=== PATIENT | male | born 1950 | race Two or more races ===

== ENCOUNTER 2019-01-16 19:25 | Emergency (ER) | payer MEDICARE, OTHER ==
[~2019-01-16] VITALS: Ht 152.4 cm; Wt 76.4 kg
[2019-01-16 22:01] LABS: BASOPHILS % (AUTO) 0.4 % (0.0-2.0); EOSINOPHILS % (AUTO) 0 % (1.0-6.0); HEMATOCRIT 43.1 % (41-53); HEMOGLOBIN 13.8 g/dL (13.5-17.5); LYMPHOCYTES # (AUTO) 0.4 K/uL (1.0-4.8); LYMPHOCYTES % (AUTO) 4.1 % (22.0-44.0); MEAN CORPUSCULAR HEMOGLOBIN 29.1 pg (26.0-34.0); MEAN CORPUSCULAR VOLUME 91 fL (80-100); MONOCYTES # (AUTO) 0.5 K/uL (0.1-1.0); MONOCYTES % (AUTO) 5.3 % (2.0-9.0); NEUTROPHILS # (AUTO) 8.1 K/uL (1.8-7.7); PLATELET COUNT (AUTO) 206 K/uL (150-450); RED BLOOD CELL COUNT(AUTO) 4.75 MIL/uL (4.50-5.90)
[2019-01-16 22:02] LABS: NEUTROPHILS % (AUTO) 90.2 % (40.0-70.0)
[2019-01-16 22:07] LABS: APPEARANCE,URINE CLOUDY (CLEAR); BILIRUBIN,URINE NEGATIVE (NEGATIVE); GLUCOSE, URINE (UA) NEGATIVE (NEGATIVE); KETONES,URINE NEGATIVE (NEGATIVE); LEUKOCYTE ESTERASE ,URINE SMALL (NEGATIVE); NITRATE,URINE POSITIVE (NEGATIVE); OCCULT BLOOD,URINE LARGE (NEGATIVE); PROTEIN,URINE TRACE (NEGATIVE); UROBILINOGEN,URINE 0.2 mg/dL (<=1.0)
[2019-01-16 22:18] LABS: RBC,URINE >100 /HPF (0-2)
[2019-01-16 22:19] LABS: BACTERIA,URINE Moderate /HPF (None Seen)
[2019-01-16 22:20] LABS: SQUAMOUS EPITHELIAL CELL,UR Few /LPF (None Seen)
[2019-01-16 22:22] LABS: CALCIUM, TOTAL 8.9 mg/dL (8.8-10.5); CREATININE 1.55 mg/dL (0.60-1.30); POTASSIUM 3.3 mmol/L (3.5-5.1)
[2019-01-16 22:26] LABS: ALBUMIN 4.3 g/dL (3.4-5.0); BILIRUBIN,TOTAL 0.6 mg/dL (0.1-1.0); TOTAL PROTEIN, SERUM 7.5 g/dL (6.4-8.2)
[2019-01-16] MEDS: CefTRIAXone 1 GM/DEXTROSE 50 ML IV ONE (22:38)
[2019-01-16] MEDS: POTASSIUM CHLORIDE 10% 40 MEQ/30 ML LIQUID UDCUP PO ONE (23:44)
[2019-01-16] MEDS: AmLODIPine BESYLATE 5 MG TABLET PO ONE (23:44)
[2019-01-17 00:13] VITALS: BP 152/94
== END 2019-01-17 00:20 | disposition home or self-care (01) ==
LOC: EMS 19:27
DX: N39.0 Urinary tract infection, site not specified (principal); I12.9 Hypertensive chronic kidney disease with stage 1 through stage 4 chronic kidney disease, or unspecified chronic kidney disease; N18.9 Chronic kidney disease, unspecified; E87.6 Hypokalemia; R73.9 Hyperglycemia, unspecified
CPT/HCPCS: 36415; 80053; 81001; 83690; 84484; 85025; 87077; 87086; 87186; 93005; 96365; 99285; J0696

== ENCOUNTER 2019-01-24 11:26 | Emergency (ER) | payer MEDICARE, OTHER ==
[~2019-01-24] VITALS: Ht 165.1 cm; Wt 75.9 kg
[2019-01-24 14:27] LABS: APPEARANCE,URINE TURBID (CLEAR); GLUCOSE, URINE (UA) NEGATIVE (NEGATIVE); KETONES,URINE 15 mg/dL (NEGATIVE); LEUKOCYTE ESTERASE ,URINE MODERATE (NEGATIVE); NITRATE,URINE POSITIVE (NEGATIVE); OCCULT BLOOD,URINE LARGE (NEGATIVE); PH,URINE 5.5 (5.0-8.0); PROTEIN,URINE SEE CONFIRM (NEGATIVE); UROBILINOGEN,URINE 0.2 mg/dL (<=1.0)
[2019-01-24 14:38] LABS: BILIRUBIN,URINE PRELIM. POSITIVE (NEGATIVE); SULFOSALICYLIC ACID,URINE 3+ (Negative)
[2019-01-24 14:39] LABS: BACTERIA,URINE Many /HPF (None Seen); RBC,URINE >100 /HPF (0-2)
[2019-01-24] MEDS ORDERED: LEVOFLOXACIN 500 MG TABLET PO ONE (14:45)
[2019-01-24] MEDS ORDERED: LEVOFLOXACIN 250 MG TABLET PO ONE (15:00)
[2019-01-24 15:45] VITALS: BP 154/89
== END 2019-01-24 15:47 | disposition home or self-care (01) ==
LOC: EMS 11:29
DX: N39.0 Urinary tract infection, site not specified (principal)
CPT/HCPCS: 87086